=== PATIENT | female | born 1990 | race Two or more races ===

== ENCOUNTER 2020-07-30 14:57 | Observation (INO) | payer BC, OTHER ==
[~2020-07-30] VITALS: Ht 162.6 cm; Wt 69.1 kg
[~2020-07-30 14:57] MED LIST: DEXAMETHASONE 4 MG/ML, 1ML ONE; ONDANSETRON 2MG/ML, 2ML ONE; PROPOFOL 10 MG/ML, 20ML ONE; SUCCINYLCHOLINE 20 MG/ML, 10ML ONE
[2020-07-30] MEDS ORDERED: CHLORHEXIDINE 15 ML UDC MM ONE (15:30)
[2020-07-30] MEDS ORDERED: ACETAMINOPHEN 500 MG TABLET PO ONE (15:30)
[2020-07-30] MEDS ORDERED: ALPR0.5T7 PO (15:31)
[2020-07-30] MEDS ORDERED: ZOLOFT PO (15:31)
[2020-07-30] MEDS ORDERED: BUPIVACAINE/PF 0.25% ONE (15:41)
[2020-07-30] MEDS ORDERED: MISOPROSTOL 200 MCG TABLET ONE ×2 (15:42→18:09)
[2020-07-30] MEDS ORDERED: SILVER NITRATE STICK TP ONE (15:42)
[2020-07-30] MEDS ORDERED: EPINEPHRINE 1 MG/ML, 1ML ONE (15:42)
[2020-07-30] MEDS ORDERED: OXYTOCIN 10 UNITS/ML, 1ML ONE (15:42)
[2020-07-30] MEDS ORDERED: METHYLERGONOVINE 0.2 MG/ML IM ONE ×2 (15:42→18:09)
[2020-07-30 15:51] VITALS: BP 123/90
[2020-07-30] MEDS ORDERED: FENTANYL PF 100 MCG/2ML ONE ×2 (15:53→19:10)
[2020-07-30] MEDS ORDERED: MIDAZOLAM 1 MG/ML, 2ML ONE (15:53)
[2020-07-30] MEDS ORDERED: LIDOCAINE-MPF 2% ,5ML ONE (15:54)
[2020-07-30 15:58] LABS: BASOPHILS % (AUTO) 1 % (0-1); EOSINOPHILS % (AUTO) 1 % (1-7); LYMPHOCYTES % (AUTO) 22 % (22-44); MEAN CORPUSCULAR HEMOGLOBIN 30.4 pg (27.0-34.8); MEAN CORPUSCULAR HGB CONC 34.2 g/dL (32.4-35.8); MONOCYTES % (AUTO) 4 % (2-9); NEUTROPHILS % (AUTO) 72 % (42-75); PLATELET COUNT 208 x10^3/uL (130-400); RED BLOOD COUNT 4.05 x10^6/uL (3.82-5.3); RED CELL DISTRIBUTION WIDTH 12.9 % (9.6-15.2)
[2020-07-30] MEDS ORDERED: PLEASE ENTER ALLERGIES MC SCH (16:00)
[2020-07-30 16:16] LABS: MD NO
[2020-07-30] MEDS ORDERED: DIPHENHYDRAMINE 50 MG/ML, 1ML IVPush PRN (18:30)
[2020-07-30] MEDS ORDERED: FENTANYL PF 100 MCG/2ML IV PRN (18:30)
[2020-07-30] MEDS ORDERED: MEPERIDINE/PF 25MG/0.5ML IVPush PRN (18:30)
[2020-07-30] MEDS ORDERED: PROMETHAZINE 25 MG/ML, 1ML IVPush PRN (18:30)
[2020-07-30] MEDS ORDERED: HYDROmorphone 1 MG/ML, 1ML INJ IVPush PRN (18:30)
[2020-07-30] MEDS ORDERED: EPHEDRINE 50 MG/ML, 1ML IVPush PRN (18:30)
[2020-07-30] MEDS ORDERED: MIDAZOLAM 1 MG/ML, 2ML IV PRN (18:30)
[2020-07-30] MEDS ORDERED: hydrALAzine 20 MG/ML, 1ML IV PRN (18:30)
[2020-07-30] MEDS ORDERED: ONDANSETRON 2MG/ML, 2ML IVPush PRN ×2 (18:30→19:30)
[2020-07-30] MEDS ORDERED: OXYcodone 5 MG/5 ML ORAL.SOL UDC PO PRN ×2 (18:30→19:30)
[2020-07-30] MEDS ORDERED: LABETALOL 5MG/ML, 20ML IV PRN (18:30)
[2020-07-30] MEDS ORDERED: PROMETHAZINE 12.5 MG SUPP PR PRN (18:30)
[2020-07-30] MEDS ORDERED: ALBUTEROL SULFATE 2.5 MG/3 ML NPPB PRN (18:30)
[2020-07-30] MEDS ORDERED: DIAZEPAM 5 MG/ML, 2ML IVPush PRN (18:30)
[2020-07-30] MEDS ORDERED: MEPERIDINE/PF 25MG/ML,1ML ONE (19:11)
[2020-07-30] MEDS ORDERED: PROMETHAZINE 25 MG/ML, 1ML ONE (19:16)
[2020-07-30 19:21] LABS: BASOPHILS % (AUTO) 1 % (0-1); EOSINOPHILS % (AUTO) 1 % (1-7); LYMPHOCYTES % (AUTO) 31 % (22-44); MEAN CORPUSCULAR HEMOGLOBIN 30.5 pg (27.0-34.8); MEAN CORPUSCULAR HGB CONC 34.1 g/dL (32.4-35.8); MEAN PLATELET VOLUME 8.6 fL (7.4-10.4); MONOCYTES % (AUTO) 5 % (2-9); NEUTROPHILS % (AUTO) 62 % (42-75); PLATELET COUNT 211 x10^3/uL (130-400); RED CELL DISTRIBUTION WIDTH 12.7 % (9.6-15.2)
[2020-07-30 19:26] VITALS: BP 126/84
[2020-07-30 19:28] LABS: MD NO
[2020-07-30] MEDS ORDERED: OXYcodone/APAP 5/325MG TABLET PO PRN (19:30)
[2020-07-30] MEDS: LACTATED RINGERS 1,000 ML IV SCH (19:30)
[2020-07-30 20:10] VITALS: BP 84/55
[2020-07-30 23:59] LABS: BASOPHILS % (AUTO) 0 % (0-1); EOSINOPHILS % (AUTO) 0 % (1-7); LYMPHOCYTES % (AUTO) 6 % (22-44); MEAN CORPUSCULAR HEMOGLOBIN 29.7 pg (27.0-34.8); MEAN CORPUSCULAR HGB CONC 33.6 g/dL (32.4-35.8); MONOCYTES % (AUTO) 1 % (2-9); NEUTROPHILS % (AUTO) 93 % (42-75); PLATELET COUNT 182 x10^3/uL (130-400); RED BLOOD COUNT 2.79 x10^6/uL (3.82-5.3); RED CELL DISTRIBUTION WIDTH 13.1 % (9.6-15.2)
[2020-07-31] VITALS (13 sets, daily range): BP systolic 94–111; BP diastolic 55–71
[2020-07-31 00:14] LABS: MD NO
[2020-07-31] MEDS ORDERED: LACTATED RINGERS 500 ML IVBOLUS ONE (01:00)
[2020-07-31] MEDS: LACTATED RINGERS 1,000 ML IV SCH ×2 (01:38→09:58)
[2020-07-31] MEDS ORDERED: FERR324T5 PO (10:12)
[2020-07-31] MEDS ORDERED: LIDOCAINE-MPF 1%, 2ML INFIL ONE (11:00)
[2020-07-31] MEDS ORDERED: CHLORHEXIDINE 15 ML UDC MM ONE (11:00)
[2020-07-31] MEDS ORDERED: LACTATED RINGERS 1,000 ML IV SCH (11:00)
[2020-07-31] MEDS ORDERED: IBUPROFEN 600 MG TABLET PO PRN (17:00)
== END 2020-07-31 18:09 | disposition home or self-care (01) ==
LOC: OR 14:57 → 4NE 20:45
PROVIDERS: ADMIT Obstetrics & Gynecology; ATTEND Obstetrics & Gynecology
DX: O02.1 Missed abortion (principal); Z20.828 Contact with and (suspected) exposure to other viral communicable diseases; O62.2 Other uterine inertia; O99.341 Other mental disorders complicating pregnancy, first trimester; F41.8 Other specified anxiety disorders; Z3A.08 8 weeks gestation of pregnancy
CPT/HCPCS: 36415; 36430; 59820; 85014; 85018; 85025; 86850; 86870; 86900; 86922; 87635; 88305; 96360; 96361; G0378; J0330; J1100; J2175; J2210; J2250; J2405; J2550; J2590; J2704; J2790; J3010; J3490; J7120; P9016; 86923; J0171